=== PATIENT | male | born 1970 | race Caucasian/White ===

== ENCOUNTER 2017-05-10 06:34 | Day surgery (SDC) | payer OTHER ==
[2017-05-10] MEDS ORDERED: Lactated Ringers 1,000 ML IV SCH ×2 (06:45→07:00)
[2017-05-10] MEDS ORDERED: HYDROmorphone 2 MG/ML SDV IVPUSH PRN (06:53)
[2017-05-10] MEDS ORDERED: fentaNYL 100 MCG/2 ML SDV IVPUSH PRN (06:53)
[2017-05-10] MEDS ORDERED: Ondansetron 4 MG/2 ML SDV IVPUSH PRN (06:53)
[2017-05-10] MEDS ORDERED: HYDROmorphone 2 MG/ML SDV IV PRN (06:53)
[2017-05-10] MEDS ORDERED: Ketorolac 30 MG/ML SDV IVPUSH ONE (08:00)
[2017-05-10] MEDS ORDERED: Dexamethasone 4 MG/ML 5 ML MDV IVPUSH ONE (08:00)
[2017-05-10] MEDS ORDERED: Propofol 200 MG/20 ML SDV IV ONE (08:00)
[2017-05-10] MEDS ORDERED: HYDROmorphone 2 MG/ML SDV IV ONE (08:00)
[2017-05-10] MEDS ORDERED: Midazolam 1 MG/ML 2 ML SDV IV ONE (08:00)
[2017-05-10] MEDS ORDERED: fentaNYL 100 MCG/2 ML SDV IV ONE (08:00)
[2017-05-10] MEDS ORDERED: ceFAZolin 2 GM in Premix Bag 1 BAG IV ONE (08:00)
[2017-05-10] MEDS ORDERED: Ondansetron 4 MG/2 ML SDV IVPUSH ONE (08:00)
[2017-05-10] MEDS ORDERED: Bupivacaine 0.5% 30 ML SDV INJECT ONE (08:20)
[2017-05-10] MEDS ORDERED: Lidocaine 1% with EPINEPHrine 1:100,000 20 ML MDV INJECT ONE (08:20)
--- NOTE | 2017-05-10 08:44 | PCM.OPNOTE ---
- General Post-Op/Procedure Note Date of Surgery/Procedure: 05/10/17 Operative Procedure(s): umbilical hernia and ventral hernia repair with mesh Findings: umbilical and ventral hernia Pre Op Diagnosis: umbilical hernia Post-Op Diagnosis: umbilical and ventral hernia Anesthesia Technique: General ET Tube, Local (7 ml 1 % lido with epi/0.5% buvipicaine) Primary Surgeon: Diaz Levy Anesthesia Provider: Gaetano Peoples EBL in mLs: 1 Complications: None Condition: Good Free Text/Narrative:: see dictation
[2017-05-10] MEDS ORDERED: Acetaminophen/HYDROcodone 325-5 MG Tab PO ONE (09:46)
[2017-05-10 10:23] VITALS: BP 129/82
--- NOTE | 2017-05-10 10:27 | OR ---
DATE OF OPERATION: 05/10/2017 SURGEON: Diaz Levy MD PROCEDURE PERFORMED: Umbilical and ventral hernia repair. PREOPERATIVE DIAGNOSIS: Umbilical hernia. POSTOPERATIVE DIAGNOSIS: Umbilical and ventral hernia. INDICATIONS FOR PROCEDURE: This is a 46-year-old white male, who has a longstanding history of an umbilical hernia. He was offered and accepted repair. INTRAOPERATIVE FINDINGS: As follows: He had an umbilical hernia and just superior by approximately 2 cm another small defect. These were repaired with a Ventralex ST hernia patch, 8 cm diameter. Reference #[id number], lot #[id number] with an expiration date of 02/08/2019. A total of 7 mL of our local mixture was used. DESCRIPTION OF OPERATION: After an excellent general anesthetic was administered, the patient was prepped and draped in usual sterile manner. Our local mixture was used to infiltrate the area around the umbilicus and a curvilinear incision was made with a #15 scalpel blade. Blunt dissection was carried out exposing around the hernia sac itself which was then transected off the posterior aspect of the umbilicus. The sac was entered and the hernia sac was removed. On removal of the sac, digital palpation was carried out dissecting any fat from the underlying fascia. The small defect was palpated superior to the umbilical area. A Ventralex hernia patch was then inserted into the abdominal cavity and the two tails were tacked on either side of the midline fascia, which was then closed with a 2-0 Prolene and then the fascia was then closed using a running 0 Prolene. The defect superior to this was also closed with a running 0 Prolene and was well within the hernia patch itself. The umbilicus was then tacked with a ahetev-dx-llrrx 0 Vicryl to the anterior abdominal wall and the skin was closed with a running subcu 4-0 Vicryl Steri- Strips were applied. Needle, sponge, and instrument counts were reported as correct. The patient was taken to recovery in good condition. /[id number] /MODL
== END 2017-05-10 11:00 | disposition home or self-care (01) ==
LOC: FB.SDS 06:34
PROVIDERS: ATTEND Surgery
DX: K42.9 Umbilical hernia without obstruction or gangrene (principal); K43.9 Ventral hernia without obstruction or gangrene; I10 Essential (primary) hypertension; E78.5 Hyperlipidemia, unspecified; Z79.899 Other long term (current) drug therapy
CPT/HCPCS: 49560; 49585; A9270; C1781; J0690; J1170; J7120; J1100; J1885; J2250; J2405; J2704; J3010

== ENCOUNTER 2019-02-05 06:38 | Day surgery (SDC) | payer BC, OTHER ==
[2019-02-05] MEDS ORDERED: Propofol 200 MG/20 ML SDV IV ONE (06:39)
[2019-02-05] MEDS ORDERED: Lidocaine 1% PF 2 ML SDV INJECT ONE (06:39)
[2019-02-05] MEDS ORDERED: Lactated Ringers 1,000 ML IV SCH (06:45)
[2019-02-05] MEDS ORDERED: Simethicone Drops 40 MG/0.6 ML 30 ML Bottle ONE (07:49)
--- NOTE | 2019-02-05 08:17 | PCM.OPNOTE ---
- General Post-Op/Procedure Note Date of Surgery/Procedure: 02/05/19 Operative Procedure(s): c scope with bx Findings: cecal and ascending colon polyp Pre Op Diagnosis: screening Post-Op Diagnosis: colon polyps Anesthesia Technique: JIMBO Primary Surgeon: Diaz Levy Anesthesia Provider: Migel Saenz Pathology: cecum, descending colon Complications: None Condition: Good Free Text/Narrative:: see dictation
[2019-02-05 09:09] VITALS: BP 159/104
--- NOTE | 2019-02-05 15:25 | OR ---
DATE OF OPERATION: 02/05/2019 SURGEON: Diaz Levy MD PROCEDURE PERFORMED: Colonoscopy with cold forceps biopsy. PREOPERATIVE DIAGNOSIS: Screening colonoscopy. POSTOPERATIVE DIAGNOSIS: Ascending colon polyp of the cecum and descending colon polyp. INDICATIONS FOR PROCEDURE: This is a 48-year-old white male who presents for his first screening colonoscopy. He was offered and accepted same. DESCRIPTION OF OPERATION: After an excellent IV sedation was administered, digital rectal exam was performed. No marked abnormality was noted. Flexible colonoscope was inserted and advanced to the cecum. Prep was excellent. The following findings were noted. Ascending colon and the cecum, a flat sessile appearing polyp, approximately 3 x 8 mm, biopsied with cold biopsy forceps and sent for permanent. Transverse colon unremarkable. Descending colon, small 2 mm polyp, biopsied with cold biopsy forceps and sent for permanent. Sigmoid and rectum, unremarkable. Colon was deflated. Scope was removed. The patient tolerated the procedure well and was taken to recovery in good condition. Results by letter. /[id number] /MODL
== END 2019-02-05 09:05 | disposition home or self-care (01) ==
LOC: FB.SDS 06:38
PROVIDERS: ATTEND Surgery
DX: Z12.11 Encounter for screening for malignant neoplasm of colon (principal); D12.0 Benign neoplasm of cecum; D12.4 Benign neoplasm of descending colon; I10 Essential (primary) hypertension; E78.5 Hyperlipidemia, unspecified; F17.220 Nicotine dependence, chewing tobacco, uncomplicated; Z79.1 Long term (current) use of non-steroidal anti-inflammatories (NSAID); Z79.899 Other long term (current) drug therapy
CPT/HCPCS: 88305; A9270-GY; J2001; J2704; J7120

== ENCOUNTER 2023-06-15 16:43 | Emergency (ER) | payer OTHER ==
[2023-06-15] MEDS ORDERED: Ciprofloxacin 500 MG Tab PO ONE (17:38)
[2023-06-15 18:25] VITALS: BP 112/76; PULSE 104
== END 2023-06-15 17:55 | disposition home or self-care (01) ==
LOC: FB.ED 16:43
DX: N50.811 Right testicular pain (principal); I10 Essential (primary) hypertension; E78.00 Pure hypercholesterolemia, unspecified; F17.210 Nicotine dependence, cigarettes, uncomplicated; Z79.899 Other long term (current) drug therapy
CPT/HCPCS: 99283; A9270

== ENCOUNTER 2024-10-02 06:36 | Day surgery (SDC) | payer BC, OTHER ==
[2024-10-02] MEDS ORDERED: Lidocaine 2% 100 MG/5 ML Syringe IVPUSH ONE (06:37)
[2024-10-02] MEDS ORDERED: Propofol 200 MG/20 ML SDV IV ONE (06:37)
[2024-10-02] MEDS ORDERED: Midazolam 1 MG/ML 2 ML SDV IV ONE (06:37)
[2024-10-02] MEDS ORDERED: Sodium Chloride 0.9% 10 ML Syringe FLUSH PRN (06:45)
[2024-10-02] MEDS: Lactated Ringers 1,000 ML IV SCH (07:36)
[2024-10-02] MEDS: Simethicone Drops 40 MG/0.6 ML 30 ML Bottle ONE (07:57)
[2024-10-02] MEDS: Ibuprofen 400 MG Tab PO ONE (09:22)
[2024-10-02 09:40] VITALS: BP 134/83; PULSE 52
== END 2024-10-02 09:29 | disposition home or self-care (01) ==
LOC: FB.SDS 06:36
PROVIDERS: ATTEND Surgery
DX: Z12.11 Encounter for screening for malignant neoplasm of colon (principal); D12.6 Benign neoplasm of colon, unspecified; I10 Essential (primary) hypertension; E78.5 Hyperlipidemia, unspecified; F17.220 Nicotine dependence, chewing tobacco, uncomplicated; Z79.899 Other long term (current) drug therapy; Z86.0101 Personal history of adenomatous and serrated colon polyps
CPT/HCPCS: 45385; 88305; A9270; J2250; J2704; J7120

== ENCOUNTER 2025-03-12 11:17 | Emergency (ER) | payer BC ==
[2025-03-12] MEDS ORDERED: Lidocaine 1% 5 ML VIAL INFILT ONE (11:18)
[2025-03-12 11:59] VITALS: BP 128/71; PULSE 94
[2025-03-12] MEDS: Diphtheria,Pertussis(Acell),Tetanus Vaccine 0.5 ML Syringe IM ONE (12:28)
== END 2025-03-12 12:35 | disposition home or self-care (01) ==
LOC: FB.ED 11:17
DX: S51.812A Laceration without foreign body of left forearm, initial encounter (principal); I10 Essential (primary) hypertension; E78.00 Pure hypercholesterolemia, unspecified; E66.9 Obesity, unspecified; Z79.899 Other long term (current) drug therapy; W29.3XXA Contact with powered garden and outdoor hand tools and machinery, initial encounter
CPT/HCPCS: 12014; 90471; 90715; 99282-25; J2003

== ENCOUNTER 2025-03-12 19:16 | Emergency (ER) | payer BC ==
[2025-03-12] MEDS ORDERED: Lidocaine 1% 5 ML VIAL INFILT ONE (19:17)
[2025-03-12 20:09] VITALS: BP 136/85; PULSE 96
== END 2025-03-12 19:49 | disposition home or self-care (01) ==
LOC: FB.ED 19:16
DX: S51.812A Laceration without foreign body of left forearm, initial encounter (principal); E66.9 Obesity, unspecified; E78.00 Pure hypercholesterolemia, unspecified; Z79.899 Other long term (current) drug therapy; X58.XXXA Exposure to other specified factors, initial encounter
CPT/HCPCS: 12001; 99282; J2003